=== PATIENT | female | born 2000 | race Caucasian/White ===

== ENCOUNTER 2020-08-18 21:48 | Emergency (ER) | payer OTHER ==
[~2020-08-18] VITALS: Ht 165.1 cm; Wt 65.8 kg
[~2020-08-18 21:48] MED LIST: CEPHALEXIN500 M1 PO; FLONASE ALLERG9.9 ML NAS; NAPROSYN500 MG PO; PREDNISONE20 M1 PO; PRENATA CHEWAB1 EACH PO; ROBAXIN500 M1 PO; Wellbutrin Xl150 MG PO
[2020-08-18] MEDS ORDERED: ZYRTEC10 M2 PO (22:58)
[2020-08-18] MEDS ORDERED: FLONASE ALLERG9.9 ML NAS (22:58)
[2020-08-18] MEDS ORDERED: AMOXICILLIN500 M2 PO (22:58)
== END 2020-08-18 23:18 | disposition home or self-care (01) ==
LOC: ED 21:48
DX: J32.9 Chronic sinusitis, unspecified (principal); F32.9 Major depressive disorder, single episode, unspecified; Z20.822 Contact with and (suspected) exposure to COVID-19; Z79.2 Long term (current) use of antibiotics; Z79.899 Other long term (current) drug therapy